=== PATIENT | male | born 1995 | race Caucasian/White ===

== ENCOUNTER 2017-08-17 16:12 | Emergency (ER) | payer OTHER ==
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
== END 2017-08-17 16:58 | disposition home or self-care (01) ==
LOC: ER 16:12
DX: S09.90XA Unspecified injury of head, initial encounter (principal); Y04.0XXA Assault by unarmed brawl or fight, initial encounter; Y92.009 Unspecified place in unspecified non-institutional (private) residence as the place of occurrence of the external cause
CPT/HCPCS: 99284

== ENCOUNTER 2020-03-29 01:33 | Emergency (ER) | payer OTHER ==
--- OUTSIDE RECORDS SUMMARY | 2020-03-29 01:35 | XMS REPORT | Continuity of Care Document ---
:1995 Author Organization [facility] t Address [address] [place] [address] Care Team Providers Name Role Phone Unavailable Unavailable Unavailable Payers Payer Name Policy Type Policy Number Effective Date Expiration Date S ource Problems This patient has no known problems. Allergies, Adverse Reactions, Alerts Allergy Allergy Status Severity Reaction(s) Onset Inactive Treating Comm ents Source Name Type Date Date Clinician iodine DA Active PR 2017-0 [facility] 8-15 [place] 00:00: [facility] Medications This patient has no known medications. Procedures This patient has no known procedures. Results This patient has no known results.
--- NOTE | 2020-03-29 02:10 | ER ---
Nurse's Notes [facility] Name: Henry Schwarz Age: 25 yrs Sex: Male : 1995 Arrival Date: 03/29/2020 Time: 01:35 Bed 18 Private MD: Diagnosis: Achilles tendinitis, right leg Presentation: 03/29 02:03 Chief complaint: Patient states: woke up a few days ago with pain in right foot. was dm5 able to walk on it. Pain has gotten worse over the last 2 days and woke the patient up from sleep this evening. Right foot does appear to be slightly more red and swollen at this time. Coronavirus screen: Client denies travel out of the [place] in the last 14 days. At this time, the client does not indicate any symptoms associated with coronavirus-19. Ebola Screen: Patient negative for fever greater than or equal to 101.5 degrees Fahrenheit, and additional compatible Ebola Virus Disease symptoms Patient denies exposure to infectious person. Patient denies travel to an Ebola-affected area in the 21 days before illness onset. No symptoms or risks identified at this time. Initial Sepsis Screen: Does the patient meet any 2 criteria? RR > 20 per min. HR > 90 bpm. Does the patient have a suspected source of infection? No. Patient's initial sepsis screen is negative. Risk Assessment: Do you want to hurt yourself or someone else? Patient reports no desire to harm self or others. Onset of symptoms was March 29, 2020. 02:03 Method Of Arrival: Ambulatory dm5 02:03 Acuity: SAMUEL 4 dm5 Historical: - Allergies: 02:07 Iodine; dm5 - Home Meds: 02:07 None [Active]; dm5 - PMHx: 02:07 Pneumonia; dm5 - PSHx: 02:07 R knee surgery; dm5 - Immunization history:: Adult Immunizations up to date. - Family history:: not pertinent. - Social history:: Smoking status: unknown. - Hospitalizations: : No recent hospitalization is reported. Screenin:30 Abuse screen: Denies threats or abuse. Nutritional screening: No deficits noted. jv1 Tuberculosis screening: No symptoms or risk factors identified. Fall Risk None identified. Assessment: 02:10 General: Appears in no apparent distress. uncomfortable, obese, well groomed, well jv1 developed, Behavior is calm, cooperative, appropriate for age. Pain: Complains of pain in right foot Pain currently is 10 out of 10 on a pain scale. Quality of pain is described as aching. Neuro: Level of Consciousness is awake, alert, obeys commands, Oriented to person, place, time, situation, Appropriate for age. Cardiovascular: Denies chest pain, Heart tones S1 S2 present. Respiratory: Airway is patent Respiratory effort is even, unlabored, Respiratory pattern is regular, symmetrical, Breath sounds are clear bilaterally. GI: No signs and/or symptoms were reported involving the gastrointestinal system. Abdomen is round non-distended, Bowel sounds present X 4 quads. : No signs and/or symptoms were reported regarding the genitourinary system. EENT: No signs and/or symptoms were reported regarding the EENT system. Derm: Skin is intact, Skin is right foot- reddish. Musculoskeletal: Circulation, motion, and sensation intact. Capillary refill < 3 seconds, Reports pain in right foot. 03:00 Reassessment: Patient appears in no apparent distress at this time. No changes from jv1 previously documented assessment. Patient and/or family updated on plan of care and expected duration. Pain level reassessed. Patient is alert, oriented x 3, equal unlabored respirations, skin warm/dry/pink. Patient states symptoms have improved. Vital Signs: 02:00 BP 148 / 101; Pulse 114; Resp 20; Temp 98.4; Pulse Ox 100% on R/A; jv1 02:03 BP 148 / 101; Pulse 114; Resp 20; Temp 98.4; Pulse Ox 100% on R/A; Weight 172.37 kg dm5 (R); Height 6 ft. 4 in. (193.04 cm); Pain 8/10; 03:00 BP 145 / 89; Pulse 90; Resp 18; Temp 98.5; Pulse Ox 99% on R/A; Pain 5/10; jv1 02:03 Body Mass Index 46.25 (172.37 kg, 193.04 cm) 5 ED Course: 01:35 Patient arrived in ED. cl3 01:45 Roc Burton MD is Attending Physician. rn 02:06 Triage completed. dm5 02:08 Arm band placed on left wrist. Patient placed in an exam room, on a stretcher. dm5 02:09 Fred Pearl MD is Referral Physician. rn 02:30 Patient has correct armband on for positive identification. Bed in low position. Side jv1 rails up X 1. Adult w/ patient. 03:00 No provider procedures requiring assistance completed. Patient did not have IV access jv1 during this emergency room visit. Administered Medications: 02:28 Drug: Clindamycin 300 mg Route: PO; jv1 03:00 Follow up: Response: No adverse reaction; Pain is decreased jv1 02:29 Drug: Decadron 10 mg Route: IM; Site: left gluteus; jv1 03:00 Follow up: Response: No adverse reaction; Pain is decreased jv1 02:29 Drug: TORadol 30 mg Route: IM; Site: right gluteus; jv1 03:00 Follow up: Response: No adverse reaction; Pain is decreased jv1 02:29 Drug: Hammett 10 mg-325 mg 1 tabs {Note: rass 0.} Route: PO; jv1 03:00 Follow up: Response: No adverse reaction; Pain is decreased jv1 Outcome: 02:09 Discharge ordered by . rn 03:00 Discharged to home via wheelchair, with family. jv1 03:00 Condition: stable 03:00 Discharge instructions given to patient, family, Instructed on discharge instructions, follow up and referral plans. medication usage, Demonstrated understanding of instructions, follow-up care, medications, Prescriptions given X 3. 03:18 Patient left the ED. jv1 Signatures: Sandra Peralta RN RN dm5 Roc Burton MD MD rn Vicente, Joyce, RN RN jv1 Arian Melton cl3
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
[2020-03-29] MEDS ORDERED: dexAMETHasone 10 MG/ML VIAL ONE (02:30)
[2020-03-29] MEDS ORDERED: HYDROCODONE/APAP 10/325 TAB ONE (02:30)
[2020-03-29] MEDS ORDERED: KETOROLAC 30 MG/ML INJ ONE (02:31)
[2020-04-03 00:50] VITALS: BP 145/89; TEMP 98.5; O2SAT 99
== END 2020-03-29 03:18 | disposition home or self-care (01) ==
LOC: ER 01:33
DX: M76.61 Achilles tendinitis, right leg (principal); Z91.048 Other nonmedicinal substance allergy status
CPT/HCPCS: 96372; 99283; J1100